=== PATIENT | female | born 1930 | race Caucasian/White ===

== ENCOUNTER 2019-10-08 10:24 | Emergency (ER) | payer OTHER ==
[~2019-10-08] VITALS: Ht 157.5 cm; Wt 90.7 kg
--- NOTE | 2019-10-08 10:35 | NUR ---
DORIAN MORGAN 88 YEAR ROLD FEMALE sent for "fever" tmax 99.8 at facility, reports slight cough. ALERT AND ORIENTED X3, BREATHING EVEN AND UNLABORED WITH NO DISTRESS NOTED. SKIN WARM TO TOUCH. WAITING TO BE SEEN BY
--- NOTE | 2019-10-08 11:00 | NUR ---
pharmacy technician trainee at bedside
[2019-10-08 11:02] LABS: BASOPHILS # (AUTO) 0.1 /CMM (0.0-0.2); BASOPHILS % (AUTO) 0.6 % (0.0-2.0); EOSINOPHILS % (AUTO) 0.3 % (0.0-6.0); HEMATOCRIT 45 % (33-45); HEMOGLOBIN 14.8 g/dL (11.5-14.8); LYMPHOCYTES # (AUTO) 2.5 /CMM (0.8-4.8); LYMPHOCYTES % (AUTO) 13.1 % (20.0-44.0); MEAN CORPUSCULAR HGB CONC 33 g/dl (31.0-36.0); MEAN CORPUSCULAR VOLUME 90 fL (82-100); MONOCYTES # (AUTO) 1.9 /CMM (0.1-1.30); NEUTROPHILS # (AUTO) 14.4 /CMM (1.8-8.9); PLATELET COUNT (AUTO) 244 /CMM (150-450); RED BLOOD CELL COUNT(AUTO) 4.94 MIL/uL (4.0-5.2)
[2019-10-08 11:21] LABS: ALANINE AMINOTRANSFERASE 23 U/L (12-78); ALBUMIN 3.4 g/dL (3.4-5.0); ALKALINE PHOSPHATASE 92 U/L (46-116); ASPARTATE AMINOTRANSFERASE 14 U/L (15-37); B-TYPE NATRIURETIC PEPTIDE 411 PG/ML (0-125); BILIRUBIN,DIRECT 0.3 mg/dL (0.0-0.2); BILIRUBIN,TOTAL 1.5 mg/dL (0.2-1.0); CALCIUM, SERUM 9.4 mg/dL (8.5-10.1); CARBON DIOXIDE 27 mmol/L (21-32); CHLORIDE 96 mmol/L (98-107); CREATININE 1.5 mg/dL (0.6-1.3); GLUCOSE 364 mg/dL (74-106); POTASSIUM 4.3 mmol/L (3.5-5.1); SODIUM SERUM 133 mmol/L (136-145); TOTAL PROTEIN, SERUM 7.4 g/dL (6.4-8.2); UREA NITROGEN, BLOOD 25 mg/dL (7-18)
[2019-10-08] MEDS ORDERED: CEFTRIAXONE 1GM BAG (ER ONLY) 50 ML IV ONE ×2 (11:30→11:38)
[2019-10-08] MEDS ORDERED: IV NS 0.9% 1,000 ML BAG IV ONE (11:30)
--- NOTE | 2019-10-08 11:55 | NUR ---
SUBMITTED MOVE SHEET TO ADMITTING AND CALLED FOR TELE BED.
--- NOTE | 2019-10-08 12:23 | NUR ---
CALLED [facility] [phone] KIRAN WILL HAVE A MD CALL US .
--- NOTE | 2019-10-08 12:25 | NUR ---
Indy marques in [facility] - 10/08/[address] LARSON ON THE PHONE WITH LISETH FROM [facility].
--- NOTE | 2019-10-08 12:28 | NUR ---
ALMA FROM [facility] CALLED
--- NOTE | 2019-10-08 12:33 | NUR ---
ALMA FROM [facility] PHONE NUMBER [phone]. SHE STATED WILL CALL BACK IF PATIENT CAN STAY
--- NOTE | 2019-10-08 12:56 | NUR ---
[facility] CALLED FOR [facility]
[2019-10-08 13:05] LABS: EOSINOPHILS % (MANUAL) 1 % (0-4); LYMPHOCYTES % (MANUAL) 12 % (16-48); MONOCYTES % (MANUAL) 6 % (0-11.0); NEUTROPHILS % (MANUAL) 81 (42-76)
[2019-10-08 13:16] LABS: APPEARANCE,URINE Slightly Cloudy (CLEAR); BILIRUBIN,URINE Negative (NEGATIVE); BLOOD, URINE Trace-lysed Ery/uL (NEGATIVE); COLOR,URINE Yellow (YELLOW); KETONES,URINE Negative (NEGATIVE); LEUKOCYTE ESTERASE ,URINE Negative (NEGATIVE); NITRITE, URINE Negative (NEGATIVE); PROTEIN,URINE Trace mg/dl (NEGATIVE); UGLUCOSE >=1000 mg/dL (NEGATIVE); UROBILINOGEN,URINE 0.2 EU/dL (0.2)
[2019-10-08 13:19] LABS: BACTERIA,URINE Moderate /HPF (None Seen); SQUAMOUS EPITHELIAL CELL,UR Many /HPF (None Seen)
[2019-10-08 13:20] LABS: RBC,URINE 0-2 /HPF (0-2); WBC,URINE 81-100 /HPF (0-3)
--- NOTE | 2019-10-08 13:22 | NUR ---
DR. PERALTA SPEAKING WITH DR. LARSON.
--- NOTE | 2019-10-08 18:01 | NUR ---
TRANSFER INFO GOING TO [facility]A ACCEPTING MD IS LUKE CALL [phone]
--- NOTE | 2019-10-08 18:48 | NUR ---
TRANSPORT INFO IS [facility] @ 8000
--- NOTE | 2019-10-08 19:32 | NUR ---
PT SAT 90 ON ROOM AIR. PLACED ON 2L NC NOW SAT 96%. VSS.
[2019-10-08 19:38] VITALS: BP 154/68
--- NOTE | 2019-10-08 19:38 | NUR ---
TEMP 99.3.
--- NOTE | 2019-10-08 19:47 | NUR ---
REPORT GIVEN TO MAIA CLARKE FOR [facility]. AWAITING TRANSPORT.
--- NOTE | 2019-10-08 20:05 | NUR ---
REPORT GIVEN TO TRANSPORT. PT BEING TRANSFERED.
== END 2019-10-08 20:14 | disposition short-term general hospital (02) ==
LOC: ER 10:30
DX: A41.9 Sepsis, unspecified organism (principal); N19 Unspecified kidney failure; I10 Essential (primary) hypertension; E78.5 Hyperlipidemia, unspecified; F20.9 Schizophrenia, unspecified; E03.9 Hypothyroidism, unspecified
CPT/HCPCS: 36415; 71045; 80048; 80076; 81001; 83605 ×2; 83880; 84145; 84484; 85025; 87040 ×2; 87081; 87086; 87633; 87804 ×2; 93005; 96365; 99291; J0696; J7030 ×2; J7050; 81000-TC